=== PATIENT | female | born 1980 | race Caucasian/White ===

== ENCOUNTER 2017-06-11 18:33 | Emergency (ER) | payer MEDICAID ==
[~2017-06-11] VITALS: Ht 154.9 cm; Wt 66.0 kg
[2017-06-11 18:34] VITALS: BP 108/75
== END 2017-06-11 19:26 | disposition home or self-care (01) ==
LOC: ED 19:00
DX: K04.7 Periapical abscess without sinus (principal)
CPT/HCPCS: 99283

== ENCOUNTER 2017-12-08 11:57 | Emergency (ER) | payer MEDICAID ==
[~2017-12-08] VITALS: Ht 154.9 cm; Wt 63.0 kg
[2017-12-08 11:59] VITALS: BP 118/82
== END 2017-12-08 12:46 | disposition home or self-care (01) ==
LOC: ED 12:30
DX: J06.9 Acute upper respiratory infection, unspecified (principal); H66.92 Otitis media, unspecified, left ear; Z88.5 Allergy status to narcotic agent; Z88.8 Allergy status to other drugs, medicaments and biological substances
CPT/HCPCS: 99283

== ENCOUNTER 2018-01-24 20:00 | Emergency (ER) | payer MEDICAID ==
[2018-01-24] MEDS ORDERED: SODIUM CHLORIDE FLUSH 10ML SYR IVF ONE (20:30)
[2018-01-24 20:44] LABS: MEAN CORPUSCULAR HEMOGLOBIN 31.8 pg (27.0-34.8); MEAN CORPUSCULAR HGB CONC 33.4 g/dL (32.4-35.8); MEAN CORPUSCULAR VOLUME 95.1 fL (80-100); MEAN PLATELET VOLUME 7.2 fL (7.4-10.4); PLATELET COUNT 364 x10^3/uL (130-400); RED BLOOD COUNT 4.39 x10^6/uL (3.82-5.3); RED CELL DISTRIBUTION WIDTH 13.1 % (9.6-15.2)
[2018-01-24 20:56] LABS: ALBUMIN 3.9 g/dL (3.4-5.0); ANION GAP 6 mmol/L (5-15); CALCIUM 8.5 mg/dL (8.5-10.1); CHLORIDE 102 mmol/L (98-107)
[2018-01-24 21:03] LABS: ALANINE AMINOTRANSFERASE 12 U/L (12-78); ALKALINE PHOSPHATASE 90 U/L (45-117); CREATININE 0.62 mg/dL (0.55-1.02); MD YES; TOTAL PROTEIN 7.4 g/dL (6.4-8.2)
[2018-01-24 21:05] LABS: BAND#(MANUAL) 0.12 x10^3/uL; BANDS%(MANUAL) 1 % (0-7); BASOS#(MANUAL) 0.12 x10^3/uL (0-0.1); BASOS% (MANUAL) 1 % (0-1); LYMPH#(MANUAL) 2.71 x10^3/uL (1-3.4); LYMPHS% (MANUAL) 22 % (22-44); MONOS#(MANUAL) 1.11 x10^3/uL (0.3-2.7); MONOS% (MANUAL) 9 % (2-9); SEG#(MANUAL) 8.24 x10^3/uL (1.8-6.8); SEGS% (MANUAL) 67 % (42-75)
[2018-01-24 21:06] LABS: <PLATELET ESTIMATE> ADEQUATE; <PLT MORPHOLOGY> NORMAL PLT MORPH; <RBC MORPHOLOGY> NORMAL
[2018-01-24] MEDS ORDERED: OMNIPAQUE 350 MG/ML, 100ML BOTTLE ONE (22:00)
[2018-01-24 22:23] LABS: MICROSCOPIC AUTO
[2018-01-24 22:24] LABS: CULTURE INDICATED? YES
[2018-01-24 23:25] VITALS: BP 112/78
== END 2018-01-24 23:43 | disposition home or self-care (01) ==
LOC: ED 23:19
DX: R10.31 Right lower quadrant pain (principal); F41.1 Generalized anxiety disorder
CPT/HCPCS: 36415; 74177; 80053; 81001; 83690; 84703; 85025; 87077; 87086; 87147; 87186; 99284; Q9967

== ENCOUNTER 2018-02-22 22:37 | Emergency (ER) | payer MEDICAID ==
[~2018-02-22] VITALS: Ht 160 cm; Wt 63.6 kg
[2018-02-22] MEDS ORDERED: SUMATRIPTAN 6MG/0.5ML SQ ONE (23:54)
[2018-02-23] MEDS ORDERED: SUMATRIPTAN 6MG/0.5ML SQ ONE
[2018-02-23 00:01] VITALS: BP 116/66
== END 2018-02-23 00:36 | disposition home or self-care (01) ==
LOC: ED 23:05
DX: G43.019 Migraine without aura, intractable, without status migrainosus (principal); F41.9 Anxiety disorder, unspecified; G43.009 Migraine without aura, not intractable, without status migrainosus; Z88.6 Allergy status to analgesic agent
CPT/HCPCS: 70450; 96372; 99284; J3030

== ENCOUNTER 2018-12-02 19:52 | Emergency (ER) | payer MEDICAID ==
[~2018-12-02] VITALS: Ht 160 cm; Wt 63.0 kg
[2018-12-02 19:56] VITALS: BP 113/74
[2018-12-02 20:35] LABS: RAPID INFLUENZA A Negative (Negative); RAPID INFLUENZA B Negative (Negative)
== END 2018-12-02 21:11 | disposition home or self-care (01) ==
LOC: ED 21:00
DX: J00 Acute nasopharyngitis [common cold] (principal); B34.9 Viral infection, unspecified; J45.909 Unspecified asthma, uncomplicated; F41.1 Generalized anxiety disorder; G43.909 Migraine, unspecified, not intractable, without status migrainosus; Z90.89 Acquired absence of other organs
CPT/HCPCS: 71046; 87081; 87400; 87880; 99284

== ENCOUNTER 2019-10-12 18:49 | Emergency (ER) | payer MEDICAID ==
[~2019-10-12] VITALS: Ht 160 cm; Wt 64.6 kg
--- NOTE | 2019-10-12 20:22 | NUR ---
PT PRESENTED WITH C/O LEFT KNEE PAIN X3 DAYS, ALSO COOPER & DIZZY. MONITORS APPLIED, SIDERAILS UP X2, CALL LIGHT WITHIN REACH
[2019-10-12] MEDS ORDERED: INHALER (20:24)
[2019-10-12] MEDS ORDERED: HYDROcodone/APAP 5/325 TABLET ONE (21:12)
--- NOTE | 2019-10-12 21:18 | NUR ---
PT MEDICATED PER MAR
[2019-10-12 21:19] VITALS: BP 116/78
[2019-10-12] MEDS ORDERED: HYDROcodone/APAP 5/325 TABLET PO ONE (21:30)
--- NOTE | 2019-10-12 21:32 | NUR ---
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
== END 2019-10-12 21:40 | disposition home or self-care (01) ==
LOC: ED 21:30
DX: M25.562 Pain in left knee (principal); Z72.9 Problem related to lifestyle, unspecified
CPT/HCPCS: 93005; 99283

== ENCOUNTER 2020-10-17 15:48 | Emergency (ER) | payer MEDICAID ==
[~2020-10-17] VITALS: Ht 160 cm; Wt 67.4 kg
[~2020-10-17 15:48] MED LIST: INHALER
[2020-10-17 16:53] VITALS: BP 124/74
== END 2020-10-17 16:55 | disposition home or self-care (01) ==
LOC: ED 16:44
DX: S40.012A Contusion of left shoulder, initial encounter (principal); S50.02XA Contusion of left elbow, initial encounter; J45.909 Unspecified asthma, uncomplicated; Z90.89 Acquired absence of other organs; Z86.73 Personal history of transient ischemic attack (TIA), and cerebral infarction without residual deficits; W18.39XA Other fall on same level, initial encounter; Y93.89 Activity, other specified; Y92.098 Other place in other non-institutional residence as the place of occurrence of the external cause; Y99.8 Other external cause status
CPT/HCPCS: 99284

== ENCOUNTER 2021-02-13 20:12 | Emergency (ER) | payer MEDICAID ==
[~2021-02-13] VITALS: Ht 160 cm; Wt 67.4 kg
[2021-02-13 20:16] VITALS: BP 128/76
[2021-02-13] MEDS ORDERED: PROPARACAINE OPHTH 0.5%, 15ML ONE (20:40)
[2021-02-13] MEDS ORDERED: FLUORESCEIN OPHTHALMIC 1 MG STRIP ONE (20:40)
[2021-02-13] MEDS ORDERED: PROPARACAINE OPHTH 0.5%, 15ML LEFTEYE ONE (21:00)
[2021-02-13] MEDS ORDERED: FLUORESCEIN OPHTHALMIC 1 MG STRIP LEFTEYE ONE (21:00)
== END 2021-02-13 21:54 | disposition home or self-care (01) ==
LOC: ED 20:42
DX: H10.022 Other mucopurulent conjunctivitis, left eye (principal); G43.909 Migraine, unspecified, not intractable, without status migrainosus; Z86.73 Personal history of transient ischemic attack (TIA), and cerebral infarction without residual deficits
CPT/HCPCS: 99283

== ENCOUNTER 2021-07-12 13:45 | Emergency (ER) | payer MEDICAID ==
[~2021-07-12] VITALS: Ht 160 cm; Wt 64.4 kg
[2021-07-12 13:52] VITALS: BP 109/79
--- NOTE | 2021-07-12 15:08 | NUR ---
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
--- NOTE | 2021-07-12 15:09 | NUR ---
floral department specialist note: No answer from lobby when pt called for room.
--- NOTE | 2021-07-12 15:28 | NUR ---
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
--- NOTE | 2021-07-12 15:45 | NUR ---
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
== END 2021-07-12 15:51 | disposition left against medical advice (07) ==
LOC: ED 14:00
DX: U07.1 COVID-19 (principal); J06.9 Acute upper respiratory infection, unspecified
CPT/HCPCS: 71045; 99284; U0003; U0005

== ENCOUNTER 2021-07-20 12:22 | Emergency (ER) | payer MEDICAID ==
[~2021-07-20] VITALS: Ht 160 cm; Wt 64.2 kg
[2021-07-20 12:56] LABS: BASOPHILS % (AUTO) 1 % (0-1); EOSINOPHILS % (AUTO) 1 % (1-7); LYMPHOCYTES % (AUTO) 35 % (22-44); MEAN CORPUSCULAR HEMOGLOBIN 31.2 pg (27.0-34.8); MEAN CORPUSCULAR HGB CONC 33.3 g/dL (32.4-35.8); MEAN PLATELET VOLUME 6.7 fL (7.4-10.4); MONOCYTES % (AUTO) 11 % (2-9); NEUTROPHILS % (AUTO) 53 % (42-75); PLATELET COUNT 449 x10^3/uL (130-400); RED BLOOD COUNT 4.55 x10^6/uL (3.82-5.3); RED CELL DISTRIBUTION WIDTH 12.4 % (9.6-15.2)
[2021-07-20 13:06] LABS: ALBUMIN 3.7 g/dL (3.4-5.0); ANION GAP 8 mmol/L (5-15); CALCIUM 8.6 mg/dL (8.5-10.1); CHLORIDE 109 mmol/L (98-107)
[2021-07-20 13:11] LABS: CREATININE 0.72 mg/dL (0.55-1.02)
--- NOTE | 2021-07-20 14:57 | NUR ---
APPLIANCES SAMPLE MAKER: PT TO ROOM FROM LOBBY
[2021-07-20 15:22] VITALS: BP 96/70
--- NOTE | 2021-07-20 15:23 | NUR ---
PT AMBULATORY TO ROOM 34 W/ C/O COUGH AND SOB. SX STARTED 07/12/21. PT STATES SHE THINKS SHE HAD A COVID SWAB "SOMEWHERE I DON'T REMEMBER WHERE". PT RESTING ON GURNEY. NADN. MONITORS APPLIED. VSS. WARM BLANKET PROVIDED. CALL LIGHT IN REACH.
--- NOTE | 2021-07-20 16:30 | NUR ---
DISCUSSED CXR AND POC W/ ERP DR. AREVALO. PER ERP PT OKAY TO DC. NO NEED FOR REGENERON.
== END 2021-07-20 16:48 | disposition home or self-care (01) ==
LOC: ED 16:40
DX: U07.1 COVID-19 (principal); J20.8 Acute bronchitis due to other specified organisms; J06.9 Acute upper respiratory infection, unspecified; B34.9 Viral infection, unspecified; R00.0 Tachycardia, unspecified; J45.909 Unspecified asthma, uncomplicated; Z86.73 Personal history of transient ischemic attack (TIA), and cerebral infarction without residual deficits; Z79.82 Long term (current) use of aspirin
CPT/HCPCS: 36415; 71045; 80048; 82040; 84703; 85025; 85379; 93005; 99285

== ENCOUNTER 2021-08-03 19:39 | Emergency (ER) | payer MEDICAID ==
[~2021-08-03] VITALS: Ht 160 cm; Wt 65.1 kg
[2021-08-03 20:09] VITALS: BP 124/88
--- NOTE | 2021-08-03 21:00 | NUR ---
NA WHEN CALLED FOR LAB X 1
--- NOTE | 2021-08-03 21:43 | NUR ---
NA WHEN CALLED FOR LAB X 2
--- NOTE | 2021-08-03 22:41 | NUR ---
NA WHEN CALLED X 3
== END 2021-08-03 22:43 | disposition left against medical advice (07) ==
LOC: ED 19:45
DX: U07.1 COVID-19 (principal)
CPT/HCPCS: 99281